=== PATIENT | male | born 2000 | race Caucasian/White ===

== ENCOUNTER 2021-06-24 02:28 | Emergency (ER) | payer OTHER ==
[~2021-06-24] VITALS: Ht 160 cm; Wt 63.6 kg
[2021-06-24 03:57] VITALS: BP 116/57
[2021-06-24] MEDS ORDERED: LEVO500T4 PO (04:04)
[2021-06-24] MEDS ORDERED: IBUP80TA PO (04:04)
[2021-06-24] MEDS ORDERED: LevoFLOXacin 500 MG TABLET PO ONE (04:05)
[2021-06-24] MEDS ORDERED: IBUPROFEN 800 MG TAB PO ONE (04:05)
== END 2021-06-24 04:10 | disposition home or self-care (01) ==
LOC: M ED 02:28
DX: N45.1 Epididymitis (principal); N43.3 Hydrocele, unspecified

== ENCOUNTER 2021-06-27 23:02 | Emergency (ER) | payer OTHER ==
[~2021-06-27] VITALS: Ht 160 cm; Wt 63.0 kg
[~2021-06-27 23:02] MED LIST: IBUP80TA PO; LEVO500T4 PO
[2021-06-27 23:14] VITALS: BP 113/57
[2021-06-28 02:12] LABS: GC DNA AMPLIFICATION NEGATIVE (NEGATIVE)
[2021-06-28] MEDS ORDERED: BACT800T5 PO (02:38)
[2021-06-28] MEDS ORDERED: BACTRIM 160MG/800MG DS TAB PO ONE (02:45)
== END 2021-06-28 03:15 | disposition home or self-care (01) ==
LOC: M ED 23:02
DX: N45.1 Epididymitis (principal)

== ENCOUNTER → 2021-07-11 | Outpatient (REF) | payer OTHER ==
[~2021-07-11] MED LIST changes: +BACT800T5 PO
[2021-07-11 18:51] LABS: APPEARANCE, URINE CLEAR (CLEAR); BACTERIA, URINE AUTO NEGATIVE (NEGATIVE); BILIRUBIN, URINE AUTO NEGATIVE (NEGATIVE); BLOOD, URINE BLOOD NEGATIVE (NEGATIVE); COLOR, URINE YELLOW (YELLOW); GLUCOSE, URINE (UA) AUTO NEGATIVE (NEGATIVE); KETONE, URINE AUTO NEGATIVE (NEGATIVE); LEUKOCYTE ESTERASE, URINE AUTO NEGATIVE (NEGATIVE); MUCUS, URINE SMALL (NEGATIVE); NITRITE, URINE AUTO NEGATIVE (NEGATIVE); PROTEIN, URINE AUTO NEGATIVE (NEGATIVE); RBC, URINE AUTO 0 /HPF (0-3); SPECIFIC GRAVITY URINE AUTO 1.023 (1.002-1.035); SQUAMOUS EPITHELIAL CELL UR AU 0 /HPF (0-6); UROBILINOGEN, URINE AUTO 0.2 mg/dL (0.0-2.0); WBC, URINE AUTO 0 /HPF (0-3)
== END ==
LOC: M SMT 16:54
PROVIDERS: ATTEND Urology
DX: N50.82 Scrotal pain (principal)

== ENCOUNTER → 2021-09-10 | Outpatient (REF) | payer OTHER ==
[2021-09-10 17:36] LABS: APPEARANCE, URINE CLEAR (CLEAR); BACTERIA, URINE AUTO NEGATIVE (NEGATIVE); BILIRUBIN, URINE AUTO NEGATIVE (NEGATIVE); BLOOD, URINE BLOOD NEGATIVE (NEGATIVE); COLOR, URINE STRAW (YELLOW); GLUCOSE, URINE (UA) AUTO NEGATIVE (NEGATIVE); KETONE, URINE AUTO NEGATIVE (NEGATIVE); LEUKOCYTE ESTERASE, URINE AUTO NEGATIVE (NEGATIVE); NITRITE, URINE AUTO NEGATIVE (NEGATIVE); PROTEIN, URINE AUTO NEGATIVE (NEGATIVE); RBC, URINE AUTO 0 /HPF (0-3); SPECIFIC GRAVITY URINE AUTO 1.006 (1.002-1.035); SQUAMOUS EPITHELIAL CELL UR AU 0 /HPF (0-6); UROBILINOGEN, URINE AUTO 0.2 mg/dL (0.0-2.0); WBC, URINE AUTO 0 /HPF (0-3)
== END ==
LOC: M SMT 17:04
PROVIDERS: ATTEND Urology
DX: N45.1 Epididymitis (principal)

== ENCOUNTER 2022-02-20 21:28 | Emergency (ER) | payer OTHER ==
[~2022-02-20] VITALS: Ht 162.6 cm; Wt 79.1 kg
[~2022-02-20 21:28] MED LIST changes: +LEVO1TAB39 PO; -LEVO500T4 PO
[2022-02-20 21:39] VITALS: BP 118/71
== END 2022-02-21 02:53 | disposition home or self-care (01) ==
LOC: M ED 21:28 → EDBD 21:28 → M ED 02-21 02:53
DX: S00.01XA Abrasion of scalp, initial encounter (principal); V49.40XA Driver injured in collision with unspecified motor vehicles in traffic accident, initial encounter; Y92.410 Unspecified street and highway as the place of occurrence of the external cause; Y93.9 Activity, unspecified; Y99.9 Unspecified external cause status